=== PATIENT | female | born 1945 | race Caucasian/White ===

== ENCOUNTER 2017-09-17 12:25 | Emergency (ER) | payer MEDICARE ==
[2017-09-17] MEDS ORDERED: Acetaminophen 500 MG Tab PO ONE (15:40)
--- NOTE | 2017-09-17 15:56 | CR ---
INDICATION: Cough. CHEST: PA and lateral views of the chest revealed an appearance of possible infiltration in the posterior portion of the lung, possibly in the left lower lobe, suggesting a patchy pneumonia in that area. No gross consolidating pneumonia or effusion was seen, however. The aorta is somewhat tortuous with calcification in the arch and descending portion. Bridging hyperostotic changes are noted, mostly anteriorly in the lower thoracic spine with a dextroconvex scoliosis of mild degree of the mid thoracic spine. Heart size is normal to slightly prominent - upper limits of normal. IMPRESSION: 1. Possible minimal pneumonia likely in the left lower lobe. 2. Probable ASHD. 3. Degenerative changes and scoliosis thoracic spine. MTDD
--- NOTE | 2017-09-22 16:11 | ER ---
DATE SEEN: 09/17/2017 TIME SEEN: The patient was seen at 1336 hours. HISTORY OF PRESENT ILLNESS: The patient notes that she is coughing at night, felt weak, had a sore throat, some difficulty swallowing and mild midepigastric abdominal discomfort secondary to cough. She has a rash on her face. Because she came in before and on the heels of a very significant critical other emergency, random labs were ordered, perhaps more than she needed, but at this point, it was difficult to ascertain what she needed for tests. Hemoglobin 14.9, white count 6300, PMNs 89, 99 lymphocytes, monos 2.0. D-dimer is 104. Troponin is negative. AST is 32 and ALT is 38. This is mild elevation, not significant. No suggestion of hepatitis. DIAGNOSIS: Early pneumonia. PLAN: Chest x-ray was performed and suggested an infiltrate. Consequently, the patient was treated empirically with Z-Giovani ut dict., and follow up with her doctor in 24 to 48 hours if markedly worse, otherwise in 7 days. ADDITIONAL COMMENT: She has a rash on the face suggestive of eczema. The differential includes a benign viral illness, but with this pneumonia and her severe cough, she was started on azithromycin for possible mycoplasma. However, she is past the age, usual age is 5 to 55 that would be a dominant bacteria. /[id number] DAVID/KEILA KEYES
== END 2017-09-17 16:25 | disposition home or self-care (01) ==
LOC: FB.ED 12:25
DX: R05 Cough (principal); M47.894 Other spondylosis, thoracic region; M41.84 Other forms of scoliosis, thoracic region; R94.31 Abnormal electrocardiogram [ECG] [EKG]
CPT/HCPCS: 36415; 71046; 80053; 83605; 84484; 85025; 85379; 87040; 87081; 87804; 87804-59; 87880-QW; 93005; 99281; 99284; A9270-GY

== ENCOUNTER 2020-03-12 08:50 | Day surgery (SDC) | payer MEDICARE ==
[2020-03-12] MEDS ORDERED: fentaNYL 100 MCG/2 ML SDV IV ONE (08:51)
[2020-03-12] MEDS ORDERED: Midazolam 1 MG/ML 2 ML SDV IV ONE (08:51)
[2020-03-12] MEDS ORDERED: Lactated Ringers 1,000 ML IV PRN (09:00)
[2020-03-12] MEDS: Sodium Chloride 0.9% 10 ML Syringe FLUSH PRN (10:09)
[2020-03-12] MEDS: acetaZOLAMIDE 500 MG Cap.ER PO ONE (11:23)
--- NOTE | 2020-03-13 12:25 | OR ---
DATE OF OPERATION: 03/12/2020 SURGEON: Yaz Cruz MD PREOPERATIVE DIAGNOSIS: Visually significant cataract, right eye. POSTOPERATIVE DIAGNOSIS: Visually significant cataract, right eye. PROCEDURES PERFORMED: Phacoemulsification with intraocular lens placement, right eye. ASSISTANTS: None. ANESTHESIA: Local with sedation. COMPLICATIONS: None. BLOOD LOSS: None. IMPLANTS: An Kevin ACU0T0, 23.5 diopter lens implanted. CDE: 5.76. DESCRIPTION OF PROCEDURE: After risks and benefits were reviewed with the patient, consent was obtained in the preoperative area, and the operative eye was marked with a surgical pen. In the preoperative area, a pledget was used to dilate the pupil consisting of a mixture of phenylephrine 10%, cyclopentolate 2%, moxifloxacin 0.5%, and bupivacaine 0.75%. The patient was taken to the operating room, where a time-out was performed, and the patient was placed under monitored anesthesia care. Topical tetracaine was used for anesthesia. The operative eye was prepped and draped for ophthalmic surgery, and the microscope was brought into position and focused. A paracentesis incision was made, followed by injection of preservative-free 1% lidocaine into the anterior chamber, followed by injection of Viscoat into the anterior chamber. A microkeratome blade was used to make a corneal limbal incision temporally. A cystotome was used to make the beginning of the capsulorrhexis, which was carried around 360 degrees in a curvilinear fashion using Utrata forceps. A Lerner cannula with BSS was used to hydrodissect and hydrodelineate the nucleus. The nucleus was removed in a divide and conquer manner using phacoemulsification. Irrigation and aspiration were used to remove the remaining cortical material. Provisc was used to inflate the capsular bag, and a pre-loaded Kevin ACU0T0, 23.5 diopter lens, serial number [id number] was injected into the capsular bag. A Sinskey hook was used to position and center the lens. Next, irrigation and aspiration was used to remove any remaining viscoelastic and cortical material from the anterior chamber. BSS on a cannula was used to inflate the anterior chamber and hydrate the wound. The wound was checked and found to be watertight. 1 mg of Moxifloxacin was injected into the anterior chamber. Drapes were removed and the eye was cleaned. A drop of brimonidine 0.15% and a drop of TobraDex was placed. The eye was shielded, and the patient was taken to the recovery room in stable condition. CC: Felicity Jeronimo OD CC: Gustavo Liang MD /[id number] TRACEY/KEILA
== END 2020-03-12 11:47 | disposition home or self-care (01) ==
LOC: FB.SDS 08:50
PROVIDERS: ATTEND Ophthalmology
DX: H25.813 Combined forms of age-related cataract, bilateral (principal); H18.599 Other hereditary corneal dystrophies, unspecified eye; H35.033 Hypertensive retinopathy, bilateral; H04.123 Dry eye syndrome of bilateral lacrimal glands; H18.529 Epithelial (juvenile) corneal dystrophy, unspecified eye; I10 Essential (primary) hypertension; E03.9 Hypothyroidism, unspecified; E66.01 Morbid (severe) obesity due to excess calories; Z68.33 Body mass index [BMI] 33.0-33.9, adult; Z79.899 Other long term (current) drug therapy; Z88.0 Allergy status to penicillin
CPT/HCPCS: 00142-QZ; A9270-GY; J2250; J3010; V2632

== ENCOUNTER 2020-03-26 08:59 | Day surgery (SDC) | payer MEDICARE ==
[2020-03-26] MEDS ORDERED: Sodium Chloride 0.9% 10 ML Syringe FLUSH PRN (09:00)
[2020-03-26] MEDS ORDERED: Lactated Ringers 1,000 ML IV PRN (09:00)
[2020-03-26] MEDS ORDERED: Midazolam 1 MG/ML 2 ML SDV IV ONE (09:00)
[2020-03-26] MEDS ORDERED: fentaNYL 100 MCG/2 ML SDV IV ONE (09:00)
[2020-03-26] MEDS ORDERED: acetaZOLAMIDE 500 MG Cap.ER PO ONE (11:00)
--- NOTE | 2020-03-27 08:02 | OR ---
DATE OF OPERATION: 03/26/2020 SURGEON: Yaz Cruz MD PREOPERATIVE DIAGNOSIS: Visually significant cataract, left eye. POSTOPERATIVE DIAGNOSIS: Visually significant cataract, left eye. PROCEDURES PERFORMED: Phacoemulsification with intraocular lens placement, left eye. ASSISTANTS: None. ANESTHESIA: Local with sedation. COMPLICATIONS: None. BLOOD LOSS: None. IMPLANTS: An Kevin ACU0T0, 23.5 diopter lens, serial number [id number] implanted. CDE: 7.60. DESCRIPTION OF PROCEDURE: After risks and benefits were reviewed with the patient, consent was obtained in the preoperative area, and the operative eye was marked with a surgical pen. In the preoperative area, a pledget was used to dilate the pupil consisting of a mixture of phenylephrine 10%, cyclopentolate 2%, moxifloxacin 0.5%, and bupivacaine 0.75%. The patient was taken to the operating room, where a time-out was performed, and the patient was placed under monitored anesthesia care. Topical tetracaine was used for anesthesia. The operative eye was prepped and draped for ophthalmic surgery, and the microscope was brought into position and focused. A paracentesis incision was made, followed by injection of preservative-free 1% lidocaine into the anterior chamber, followed by injection of Viscoat into the anterior chamber. A microkeratome blade was used to make a corneal limbal incision temporally. A cystotome was used to make the beginning of the capsulorrhexis, which was carried around 360 degrees in a curvilinear fashion using Utrata forceps. A Lerner cannula with BSS was used to hydrodissect and hydrodelineate the nucleus. The nucleus was removed in a divide and conquer manner using phacoemulsification. Irrigation and aspiration were used to remove the remaining cortical material. Provisc was used to inflate the capsular bag, and a pre-loaded Kevin ACU0T0, 23.5 diopter lens, serial number [id number] was injected into the capsular bag. A Sinskey hook was used to position and center the lens. Next, irrigation and aspiration was used to remove any remaining viscoelastic and cortical material from the anterior chamber. BSS on a cannula was used to inflate the anterior chamber and hydrate the wound. The wound was checked and found to be watertight. 1 mg of Moxifloxacin was injected into the anterior chamber. Drapes were removed and the eye was cleaned. A drop of brimonidine 0.15% and a drop of TobraDex was placed. The eye was shielded, and the patient was taken to the recovery room in stable condition. /[id number] TRACEY/KEILA
== END 2020-03-26 11:25 | disposition home or self-care (01) ==
LOC: FB.SDS 08:59
PROVIDERS: ATTEND Ophthalmology
DX: H25.812 Combined forms of age-related cataract, left eye (principal); I10 Essential (primary) hypertension; E03.9 Hypothyroidism, unspecified; E66.01 Morbid (severe) obesity due to excess calories; Z68.33 Body mass index [BMI] 33.0-33.9, adult; H18.599 Other hereditary corneal dystrophies, unspecified eye; H35.033 Hypertensive retinopathy, bilateral; H04.123 Dry eye syndrome of bilateral lacrimal glands; Z79.899 Other long term (current) drug therapy; Z88.0 Allergy status to penicillin
CPT/HCPCS: 66984; A9270; J2250; J3010; V2632; 00142-QZ

== ENCOUNTER 2024-07-08 19:33 | Emergency (ER) | payer MEDICARE ==
[2024-07-08] MEDS ORDERED: Nitrofurantoin Monohydrate/Macrocrystalline 100 MG Cap PO ONE (19:34)
[2024-07-08] MEDS ORDERED: Codeine/guaiFENesin 100mg-10 MG/5 ML Soln 118 ML Bottle PO ONE (19:34)
[2024-07-08] MEDS ORDERED: Sodium Chloride 0.9% 10 ML Syringe FLUSH PRN (20:00)
[2024-07-08] MEDS: Sodium Chloride 0.9% 1,000 ML IV SCH (20:16)
[2024-07-08 20:23] LABS: HEMATOCRIT 41.6 % (34.2-48.2); MEAN CORPUSCULAR HEMOGLOBIN 28.4 pg (23.9-33.9); MEAN CORPUSCULAR HGB CONC 33.6 g/dL (31.9-34.8); MEAN CORPUSCULAR VOLUME 84.5 fL (76.7-100.5); MEAN PLATELET VOLUME 8.6 fL (7.1-12.4); PLATELET COUNT,PLT 191 x10(3)uL (151-488); RED BLOOD CELL COUNT 4.93 x10(6)uL (3.60-5.20); RED CELL DISTRIBUTION WIDTH 14.9 % (12.3-16.5); WHITE BLOOD CELL COUNT,WBC 6.9 x10-3/uL (3.0-10.3)
[2024-07-08 20:37] LABS: BAND PERCENT MAN 2 % (0-6); LYMPHOCYTES PERCENT MAN 11 % (13-37); MONOCYTES PERCENT MAN 4 % (4-12); SEG NEUTROPHILS PERCENT MAN 83 % (46-82)
[2024-07-08 20:39] LABS: ALANINE AMINOTRANSFERASE,ALT 21 U/L (12-36); ALBUMIN 3.6 g/dL (3.2-4.6); ALKALINE PHOSPHATASE 118 IU/L (56-112); ASPARTATE AMNIOTRANSFERASE,AST 35 IU/L (5-25); BILIRUBIN TOTAL 0.4 mg/dL (0.1-1.3); BLOOD UREA NITROGEN,BUN 20 mg/dL (7-18); BUN/CREATININE RATIO 16.7 (9-20); CALCIUM 9.2 mg/dL (8.6-10.2); CARBON DIOXIDE,CO2 24 mmol/L (21-32); CHLORIDE,CL 97 mmol/L (100-110); CREATININE 1.2 mg/dL (0.55-1.02); ESTIMATED GFR 47 mL/min (>60); GLUCOSE RANDOM 93 mg/dL (80-116); POTASSIUM,K 3.1 mmol/L (3.5-5.3); PROTEIN TOTAL,TP 7.4 g/dL (6.0-8.0); SODIUM,NA 131 mmol/L (135-145)
[2024-07-08 20:42] LABS: TROPONIN I 13.6 pg/mL (4.0-60.3)
[2024-07-08 20:43] LABS: LACTIC ACID 1.1 mmol/L (0.4-2.0)
[2024-07-08 20:51] LABS: C-REACTIVE PROTEIN 6.15 mg/dL (<0.50)
[2024-07-08 20:57] LABS: BILIRUBIN,URINE NEGATIVE (NEGATIVE); GLUCOSE,URINE NORMAL (NORMAL); KETONES,URINE 15 mg/dL (NEGATIVE); LEUKOCYTE ESTERASE,URINE LARGE (NEGATIVE); NITRITE,URINE NEGATIVE (NEGATIVE); OCCULT BLOOD,URINE MODERATE (NEGATIVE); PROTEIN,URINE 30 mg/dL (NEGATIVE); UROBILINOGEN,URINE NORMAL (NEGATIVE)
[2024-07-08 21:03] LABS: APPEARANCE,URINE SLIGHTLY CLOUDY (CLEAR); BACTERIA,URINE FEW (NS); COLOR,URINE YELLOW (YELLOW); MUCUS,URINE FEW (NS); RBC,URINE 0-5 (0-5); SQUAMOUS EPITHELIAL CELLS,UR FEW (NS,R,O)
[2024-07-08 21:08] LABS: INFLUENZA A NAA POSITIVE (NEGATIVE); INFLUENZA B NAA NEGATIVE (NEGATIVE); RESPIRATORY SYNCYTIAL VIR NAA NEGATIVE (NEGATIVE)
[2024-07-08 21:15] LABS: CORONAVIRUS COVID-19 NAA NEGATIVE (NEGATIVE)
== END 2024-07-08 22:32 | disposition home or self-care (01) ==
LOC: FB.ED 19:33
DX: J11.1 Influenza due to unidentified influenza virus with other respiratory manifestations (principal); I10 Essential (primary) hypertension; R06.89 Other abnormalities of breathing; E66.9 Obesity, unspecified; E03.9 Hypothyroidism, unspecified; Z88.0 Allergy status to penicillin; Z79.890 Hormone replacement therapy; Z79.899 Other long term (current) drug therapy
CPT/HCPCS: 0241U; 71045; 80053; 81001; 83605; 83880; 84484; 85025; 86140; 87086; 96360; 99284; 99285; A9270

== ENCOUNTER 2024-07-17 19:36 | Inpatient (IN) | payer MEDICARE ==
[2024-07-17] MEDS ORDERED: Sodium Chloride 0.9% 10 ML Syringe FLUSH PRN (22:19)
[2024-07-17 22:50] LABS: BASOPHILS PERCENT AUTO 0.2 % (0.2-1.5); HEMATOCRIT 42.2 % (34.2-48.2); HEMOGLOBIN 13.8 g/dL (11.4-15.5); LYMPHOCYTES ABSOLUTE AUTO 1.2 x10-3/uL (1.0-4.4); LYMPHOCYTES PERCENT AUTO 19.2 % (18.4-52.1); MEAN CORPUSCULAR HEMOGLOBIN 27.7 pg (23.9-33.9); MEAN CORPUSCULAR HGB CONC 32.8 g/dL (31.9-34.8); MEAN CORPUSCULAR VOLUME 84.6 fL (76.7-100.5); MONOCYTES ABSOLUTE AUTO 0.2 x10-3/uL (0.3-1.0); MONOCYTES PERCENT AUTO 3.9 % (4.4-15.7); NEUTROPHILS ABSOLUTE AUTO 4.6 x10-3/uL (1.5-6.3); NEUTROPHILS PERCENT AUTO 76.7 % (30.8-76.2); PLATELET COUNT,PLT 349 x10(3)uL (151-488); RED BLOOD CELL COUNT 4.99 x10(6)uL (3.60-5.20); RED CELL DISTRIBUTION WIDTH 15.9 % (12.3-16.5)
[2024-07-17 23:05] LABS: BLOOD UREA NITROGEN,BUN 21 mg/dL (7-18); BUN/CREATININE RATIO 17.5 (9-20); CALCIUM 9.5 mg/dL (8.6-10.2); CARBON DIOXIDE,CO2 28 mmol/L (21-32); CHLORIDE,CL 102 mmol/L (100-110); CREATININE 1.2 mg/dL (0.55-1.02); EST CRCL DRUG DOSING (CG) 29.63 mL/min; ESTIMATED GFR 47 mL/min (>60); GLUCOSE RANDOM 90 mg/dL (80-116); POTASSIUM,K 3.7 mmol/L (3.5-5.3); SODIUM,NA 140 mmol/L (135-145)
[2024-07-17 23:11] LABS: A/G RATIO 0.9; ALANINE AMINOTRANSFERASE,ALT 19 U/L (12-36); ALBUMIN 3.3 g/dL (3.2-4.6); ALKALINE PHOSPHATASE 110 IU/L (56-112); ASPARTATE AMNIOTRANSFERASE,AST 24 IU/L (5-25); BILIRUBIN TOTAL 0.6 mg/dL (0.1-1.3); MAGNESIUM 2.2 mg/dL (1.8-2.5); PROTEIN TOTAL,TP 7.2 g/dL (6.0-8.0)
[2024-07-17 23:12] LABS: BASE EXCESS VENOUS,POC 1 mmol/L (-2 - 3+); PCO2 VENOUS,POC 38 mmHg (41-51); PH VENOUS,POC 7.43 pH Units (7.32-7.43)
[2024-07-17 23:28] LABS: C-REACTIVE PROTEIN 0.8 mg/dL (<0.50); TROPONIN I 12.7 pg/mL (4.0-60.3)
[2024-07-18] MEDS: Sodium Chloride 0.9% 500 ML IV ONE (01:46)
[2024-07-18] MEDS ORDERED: Levofloxacin/Dextrose 5%-Water 500 MG in Premix Bag 1 BAG IV SCH (04:30)
[2024-07-18] MEDS: Pantoprazole 40 MG Vial IVPUSH SCH (05:11)
[2024-07-18] MEDS: cefTRIAXone 1 GM Vial IVPUSH SCH (05:12)
[2024-07-18] MEDS: Enoxaparin 30 MG/0.3 ML Syringe SUBCUT SCH (05:15)
[2024-07-18] MEDS: Levofloxacin/Dextrose 5%-Water 500 MG in Premix Bag 1 BAG IV ONE (05:20)
[2024-07-18] MEDS: Sodium Chloride 0.9% 1,000 ML IV SCH (05:30)
[2024-07-18] MEDS: Saccharomyces Boulardii (Probiotic) 250 MG Cap PO SCH (05:35)
[2024-07-18] MEDS: Albuterol/Ipratropium 3.0-0.5 MG/3 ML Neb Soln NEB SCH (06:55)
[2024-07-18] MEDS: Levothyroxine 88 MCG Tab PO SCH (07:20)
[2024-07-18] MEDS: Ondansetron 4 MG/2 ML SDV IV PRN (07:59)
[2024-07-18] MEDS: Potassium Chloride 10 MEQ Tab.ER PO SCH (09:04)
[2024-07-18] MEDS: amLODIPine 2.5 MG Tab PO SCH (09:04)
[2024-07-18] MEDS: Pravastatin 20 MG Tab PO SCH (09:04)
[2024-07-18] MEDS: Losartan 50 MG Tab PO SCH (09:05)
[2024-07-18 09:28] LABS: BILIRUBIN,URINE NEGATIVE (NEGATIVE); GLUCOSE,URINE NORMAL (NORMAL); KETONES,URINE 15 mg/dL (NEGATIVE); LEUKOCYTE ESTERASE,URINE SMALL (NEGATIVE); NITRITE,URINE NEGATIVE (NEGATIVE); OCCULT BLOOD,URINE NEGATIVE (NEGATIVE); PROTEIN,URINE NEGATIVE (NEGATIVE); UROBILINOGEN,URINE NORMAL (NEGATIVE)
[2024-07-18 09:30] LABS: APPEARANCE,URINE CLEAR (CLEAR); COLOR,URINE YELLOW (YELLOW)
[2024-07-18 09:39] LABS: BACTERIA,URINE FEW (NS); SQUAMOUS EPITHELIAL CELLS,UR FEW (NS,R,O); WBC,URINE 0-5 (0-5)
[2024-07-18] MEDS: Levofloxacin/Dextrose 5%-Water 250 MG in Premix Bag 1 BAG IV ONE (10:32)
[2024-07-18] MEDS: metroNIDAZOLE/Normal Saline 500 MG in Premix Bag 1 BAG IV SCH (13:19)
[2024-07-18] MEDS: Acetaminophen 325 MG Tab PO PRN (13:24)
[2024-07-19] MEDS ORDERED: Levofloxacin/Dextrose 5%-Water 500 MG in Premix Bag 1 BAG IV SCH (04:30)
[2024-07-19] MEDS: Levothyroxine 88 MCG Tab PO SCH (05:31)
[2024-07-19 06:46] LABS: HEMATOCRIT 38.9 % (34.2-48.2); HEMOGLOBIN 12.6 g/dL (11.4-15.5); MEAN CORPUSCULAR HEMOGLOBIN 27.6 pg (23.9-33.9); MEAN CORPUSCULAR HGB CONC 32.5 g/dL (31.9-34.8); MEAN PLATELET VOLUME 8.9 fL (7.1-12.4); PLATELET COUNT,PLT 276 x10(3)uL (151-488); RED BLOOD CELL COUNT 4.58 x10(6)uL (3.60-5.20)
[2024-07-19 06:53] LABS: BLOOD UREA NITROGEN,BUN 25 mg/dL (7-18); BUN/CREATININE RATIO 14.7 (9-20); CALCIUM 8.2 mg/dL (8.6-10.2); CARBON DIOXIDE,CO2 23 mmol/L (21-32); CHLORIDE,CL 109 mmol/L (100-110); CREATININE 1.7 mg/dL (0.55-1.02); EST CRCL DRUG DOSING (CG) 20.91 mL/min; ESTIMATED GFR 31 mL/min (>60); GLUCOSE RANDOM 101 mg/dL (80-116); SODIUM,NA 142 mmol/L (135-145)
[2024-07-19 07:03] LABS: LYMPHOCYTES PERCENT MAN 3 % (13-37); MONOCYTES PERCENT MAN 1 % (4-12); SEG NEUTROPHILS PERCENT MAN 96 % (46-82)
[2024-07-20 05:36] LABS: HEMOGLOBIN 11.9 g/dL (11.4-15.5); MEAN CORPUSCULAR HEMOGLOBIN 27.9 pg (23.9-33.9); MEAN CORPUSCULAR VOLUME 84.4 fL (76.7-100.5); PLATELET COUNT,PLT 237 x10(3)uL (151-488); RED BLOOD CELL COUNT 4.26 x10(6)uL (3.60-5.20); RED CELL DISTRIBUTION WIDTH 16.3 % (12.3-16.5); WHITE BLOOD CELL COUNT,WBC 9.2 x10-3/uL (3.0-10.3)
[2024-07-20 05:41] LABS: BLOOD UREA NITROGEN,BUN 30 mg/dL (7-18); BUN/CREATININE RATIO 18.8 (9-20); CALCIUM 8.4 mg/dL (8.6-10.2); CARBON DIOXIDE,CO2 22 mmol/L (21-32); CHLORIDE,CL 110 mmol/L (100-110); CREATININE 1.6 mg/dL (0.55-1.02); EST CRCL DRUG DOSING (CG) 22.22 mL/min; ESTIMATED GFR 33 mL/min (>60); GLUCOSE RANDOM 100 mg/dL (80-116); POTASSIUM,K 3.4 mmol/L (3.5-5.3); SODIUM,NA 141 mmol/L (135-145)
[2024-07-20 06:11] LABS: LYMPHOCYTES PERCENT MAN 8 % (13-37); MONOCYTES PERCENT MAN 4 % (4-12); SEG NEUTROPHILS PERCENT MAN 88 % (46-82)
[2024-07-20] MEDS: Levofloxacin/Dextrose 5%-Water 750 MG in Premix Bag 1 BAG IV SCH (10:05)
[2024-07-20] MEDS: Potassium Chloride 20 MEQ Tab.ER PO ONE (12:29)
[2024-07-20] MEDS: Benzonatate 100 MG Cap PO PRN (15:00)
[2024-07-20 17:26] LABS: BILIRUBIN,URINE NEGATIVE (NEGATIVE); GLUCOSE,URINE NORMAL (NORMAL); KETONES,URINE NEGATIVE (NEGATIVE); LEUKOCYTE ESTERASE,URINE MODERATE (NEGATIVE); NITRITE,URINE NEGATIVE (NEGATIVE); OCCULT BLOOD,URINE NEGATIVE (NEGATIVE); PROTEIN,URINE TRACE mg/dL (NEGATIVE); UROBILINOGEN,URINE NORMAL (NEGATIVE)
[2024-07-20 17:46] LABS: APPEARANCE,URINE SLIGHTLY CLOUDY (CLEAR); BACTERIA,URINE OCCASIONAL (NS); COLOR,URINE YELLOW (YELLOW); MUCUS,URINE FEW (NS); RBC,URINE 0-5 (0-5); SQUAMOUS EPITHELIAL CELLS,UR FEW (NS,R,O)
[2024-07-20 23:07] LABS: LEGIONELLA PNEUMOPHILA AG,URN Negative (Negative)
[2024-07-20 23:56] LABS: STREPTOCOCCUS PNEUMONIAE AG,UR Negative (Negative)
[2024-07-21 06:25] LABS: HEMATOCRIT 35.7 % (34.2-48.2); HEMOGLOBIN 11.9 g/dL (11.4-15.5); MEAN CORPUSCULAR HEMOGLOBIN 28.2 pg (23.9-33.9); MEAN CORPUSCULAR HGB CONC 33.5 g/dL (31.9-34.8); MEAN CORPUSCULAR VOLUME 84.2 fL (76.7-100.5); MEAN PLATELET VOLUME 8.7 fL (7.1-12.4); PLATELET COUNT,PLT 220 x10(3)uL (151-488); RED BLOOD CELL COUNT 4.24 x10(6)uL (3.60-5.20); RED CELL DISTRIBUTION WIDTH 16.5 % (12.3-16.5); WHITE BLOOD CELL COUNT,WBC 8.3 x10-3/uL (3.0-10.3)
[2024-07-21 06:26] LABS: BLOOD UREA NITROGEN,BUN 17 mg/dL (7-18); BUN/CREATININE RATIO 14.2 (9-20); CALCIUM 8.2 mg/dL (8.6-10.2); CARBON DIOXIDE,CO2 24 mmol/L (21-32); CHLORIDE,CL 112 mmol/L (100-110); CREATININE 1.2 mg/dL (0.55-1.02); EST CRCL DRUG DOSING (CG) 29.63 mL/min; ESTIMATED GFR 47 mL/min (>60); GLUCOSE RANDOM 91 mg/dL (80-116); POTASSIUM,K 4.2 mmol/L (3.5-5.3); SODIUM,NA 142 mmol/L (135-145)
[2024-07-21 06:57] LABS: BAND PERCENT MAN 2 % (0-6); LYMPHOCYTES PERCENT MAN 10 % (13-37); MONOCYTES PERCENT MAN 1 % (4-12); SEG NEUTROPHILS PERCENT MAN 87 % (46-82)
[2024-07-21 11:13] LABS: MRSA DETECTION BY PCR Not Detected
== END 2024-07-21 14:50 | disposition home or self-care (01) | DRG 193 ==
LOC: FB.ED 19:36 → FB.MS 07-18
PROVIDERS: ADMIT Emergency Medicine; ATTEND Family Medicine
DX: J18.9 Pneumonia, unspecified organism (principal); E86.0 Dehydration; J10.00 Influenza due to other identified influenza virus with unspecified type of pneumonia; R06.89 Other abnormalities of breathing; J96.01 Acute respiratory failure with hypoxia; N17.9 Acute kidney failure, unspecified; F15.90 Other stimulant use, unspecified, uncomplicated; Z79.890 Hormone replacement therapy; H26.9 Unspecified cataract; Z68.31 Body mass index [BMI] 31.0-31.9, adult; I10 Essential (primary) hypertension; Z66 Do not resuscitate; Z53.20 Procedure and treatment not carried out because of patient's decision for unspecified reasons; E87.6 Hypokalemia; J45.909 Unspecified asthma, uncomplicated; E03.9 Hypothyroidism, unspecified; E66.9 Obesity, unspecified; Z98.49 Cataract extraction status, unspecified eye; Z68.28 Body mass index [BMI] 28.0-28.9, adult; Z88.0 Allergy status to penicillin; Z79.899 Other long term (current) drug therapy; Z79.02 Long term (current) use of antithrombotics/antiplatelets
CPT/HCPCS: 36415; 71046; 76770; 80048; 80053; 81001; 83605; 83735; 83880; 84484; 85025; 85379; 86140; 87040; 87070; 87086; 87205; 87426-QW; 87449; 87641; 87899; 93005; 94150; 94640; 99285; A9270-GY; J0696; J1650; J1836; J1956; J2405; J2470; J7620

== ENCOUNTER 2025-01-22 02:03 | Emergency (ER) | payer MEDICARE ==
[2025-01-22 02:35] LABS: BASOPHILS ABSOLUTE AUTO 0.0 x10-3/uL (0.0-0.1); BASOPHILS PERCENT AUTO 0.1 % (0.2-1.5); EOSINOPHILS ABSOLUTE AUTO 0.0 x10-3/uL (0.0-0.8); EOSINOPHILS PERCENT AUTO 0.0 % (0.6-8.1); LYMPHOCYTES ABSOLUTE AUTO 1.7 x10-3/uL (1.0-4.4); LYMPHOCYTES PERCENT AUTO 28.2 % (18.4-52.1); MEAN PLATELET VOLUME 9.7 fL (7.1-12.4); MONOCYTES ABSOLUTE AUTO 0.2 x10-3/uL (0.3-1.0); MONOCYTES PERCENT AUTO 3.9 % (4.4-15.7); NEUTROPHILS ABSOLUTE AUTO 4.1 x10-3/uL (1.5-6.3); NEUTROPHILS PERCENT AUTO 67.8 % (30.8-76.2); PLATELET COUNT,PLT 223 x10(3)uL (151-488); RED CELL DISTRIBUTION WIDTH 18.0 % (12.3-16.5); WHITE BLOOD CELL COUNT,WBC 6.0 x10-3/uL (3.0-10.3)
[2025-01-22 02:39] LABS: BLOOD UREA NITROGEN,BUN 14 mg/dL (7-18); CARBON DIOXIDE,CO2 26 mmol/L (21-32); CHLORIDE,CL 105 mmol/L (100-110); CREATININE 1.0 mg/dL (0.55-1.02); ESTIMATED GFR 58 mL/min (>60); GLUCOSE RANDOM 102 mg/dL (80-116); POTASSIUM,K 3.6 mmol/L (3.5-5.3); SODIUM,NA 141 mmol/L (135-145)
[2025-01-22 02:49] LABS: RED BLOOD CELL COUNT 4.39 x10(6)uL (3.60-5.20)
[2025-01-22 02:51] LABS: A/G RATIO 1.4; ALANINE AMINOTRANSFERASE,ALT 49 U/L (12-36); ASPARTATE AMNIOTRANSFERASE,AST 45 IU/L (5-25); BILIRUBIN TOTAL 1.0 mg/dL (0.1-1.3); PROTEIN TOTAL,TP 6.9 g/dL (6.0-8.0)
[2025-01-22 03:09] LABS: GLUCOSE,URINE NORMAL (NORMAL); OCCULT BLOOD,URINE NEGATIVE (NEGATIVE)
[2025-01-22 03:17] LABS: APPEARANCE,URINE CLOUDY (CLEAR)
[2025-01-22 03:18] LABS: SQUAMOUS EPITHELIAL CELLS,UR FEW (NS,R,O)
[2025-01-22] MEDS: Heparin Sodium 5,000 Units/ML Vial IVPUSH STA (03:30)
[2025-01-22 03:33] LABS: INR 0.98 (1.00-1.24)
[2025-01-22] MEDS: Heparin Sodium/0.45% NaCl 25,000 UNITS/500 ML BAG IV SCH (03:33)
[2025-01-22 03:35] LABS: PTT,PARTIAL THROMBOPLSTIN TIME 27.0 SECONDS (24.4-33.2)
[2025-01-22] MEDS: Furosemide 40 MG/4 ML VIAL IVPUSH ONE (03:56)
== END 2025-01-22 05:15 ==
LOC: FB.ED 02:03
DX: I21.4 Non-ST elevation (NSTEMI) myocardial infarction (principal); I11.0 Hypertensive heart disease with heart failure; I50.9 Heart failure, unspecified; I25.2 Old myocardial infarction; J45.909 Unspecified asthma, uncomplicated; E03.9 Hypothyroidism, unspecified; Z95.5 Presence of coronary angioplasty implant and graft; Z88.0 Allergy status to penicillin; Z79.890 Hormone replacement therapy; Z79.899 Other long term (current) drug therapy
CPT/HCPCS: 36415; 71045; 80053; 81001; 83880; 84484; 85025; 85379; 85610; 85730; 87086; 93005; 93010; 96365; 96366; 96375; 99285; 99285-25; J1644; J1938